=== PATIENT | female | born 1985 | race Caucasian/White ===

== ENCOUNTER 2023-03-21 18:02 | Emergency (ER) | payer MEDICARE, MEDICAID, SELFPAY ==
--- NOTE | ~2023-03-21 | XR_ITS ---
EXAMINATION: XR forearm RT 2V, XR shoulder RT min 2V, XR elbow RT min 3V, XR hand wrist RT 03/21/2023 7:05 PM CLINICAL HISTORY: Fall, fracture? COMPARISON: None FINDINGS: RIGHT SHOULDER: No evidence of acute fracture or malalignment. Glenohumeral joint space is well-preserved. Acromioclavicular joint is unremarkable. Coracoclavicular distance is normal. Soft tissues are unremarkable. RIGHT ELBOW: No evidence of acute fracture or malalignment. Joint spaces are well preserved. Radiocapitellar alignment is normal. No joint effusion. Soft tissues are unremarkable. RIGHT FOREARM/HAND: Acute, comminuted distal radial fracture with mildly displaced dorsal fragments (Lam-type fracture). No evidence of dislocation. Mild widening of the scapholunate interval, measuring 4 mm. Normal bone mineralization. Diffuse wrist soft tissue swelling. XR/XR hand wrist RT IMPRESSION: 1. Acute, comminuted distal radial fracture with mildly displaced dorsal fragments (Lam-type fracture). 2. Mild widening of the scapholunate interval, suspicious for scapholunate ligamentous injury.
--- NOTE | ~2023-03-21 | XR_ITS ---
EXAMINATION: XR forearm RT 2V, XR shoulder RT min 2V, XR elbow RT min 3V, XR hand wrist RT 03/21/2023 7:05 PM CLINICAL HISTORY: Fall, fracture? COMPARISON: None FINDINGS: RIGHT SHOULDER: No evidence of acute fracture or malalignment. Glenohumeral joint space is well-preserved. Acromioclavicular joint is unremarkable. Coracoclavicular distance is normal. Soft tissues are unremarkable. RIGHT ELBOW: No evidence of acute fracture or malalignment. Joint spaces are well preserved. Radiocapitellar alignment is normal. No joint effusion. Soft tissues are unremarkable. RIGHT FOREARM/HAND: Acute, comminuted distal radial fracture with mildly displaced dorsal fragments (Lam-type fracture). No evidence of dislocation. Mild widening of the scapholunate interval, measuring 4 mm. Normal bone mineralization. Diffuse wrist soft tissue swelling. XR/XR shoulder RT min 2V IMPRESSION: 1. Acute, comminuted distal radial fracture with mildly displaced dorsal fragments (Lam-type fracture). 2. Mild widening of the scapholunate interval, suspicious for scapholunate ligamentous injury.
--- NOTE | ~2023-03-21 | XR_ITS ---
EXAMINATION: XR forearm RT 2V, XR shoulder RT min 2V, XR elbow RT min 3V, XR hand wrist RT 03/21/2023 7:05 PM CLINICAL HISTORY: Fall, fracture? COMPARISON: None FINDINGS: RIGHT SHOULDER: No evidence of acute fracture or malalignment. Glenohumeral joint space is well-preserved. Acromioclavicular joint is unremarkable. Coracoclavicular distance is normal. Soft tissues are unremarkable. RIGHT ELBOW: No evidence of acute fracture or malalignment. Joint spaces are well preserved. Radiocapitellar alignment is normal. No joint effusion. Soft tissues are unremarkable. RIGHT FOREARM/HAND: Acute, comminuted distal radial fracture with mildly displaced dorsal fragments (Lam-type fracture). No evidence of dislocation. Mild widening of the scapholunate interval, measuring 4 mm. Normal bone mineralization. Diffuse wrist soft tissue swelling. XR/XR elbow RT min 3V IMPRESSION: 1. Acute, comminuted distal radial fracture with mildly displaced dorsal fragments (Lam-type fracture). 2. Mild widening of the scapholunate interval, suspicious for scapholunate ligamentous injury.
--- NOTE | ~2023-03-21 | XR_ITS ---
EXAMINATION: XR forearm RT 2V, XR shoulder RT min 2V, XR elbow RT min 3V, XR hand wrist RT 03/21/2023 7:05 PM CLINICAL HISTORY: Fall, fracture? COMPARISON: None FINDINGS: RIGHT SHOULDER: No evidence of acute fracture or malalignment. Glenohumeral joint space is well-preserved. Acromioclavicular joint is unremarkable. Coracoclavicular distance is normal. Soft tissues are unremarkable. RIGHT ELBOW: No evidence of acute fracture or malalignment. Joint spaces are well preserved. Radiocapitellar alignment is normal. No joint effusion. Soft tissues are unremarkable. RIGHT FOREARM/HAND: Acute, comminuted distal radial fracture with mildly displaced dorsal fragments (Lam-type fracture). No evidence of dislocation. Mild widening of the scapholunate interval, measuring 4 mm. Normal bone mineralization. Diffuse wrist soft tissue swelling. XR/XR forearm RT 2V IMPRESSION: 1. Acute, comminuted distal radial fracture with mildly displaced dorsal fragments (Lam-type fracture). 2. Mild widening of the scapholunate interval, suspicious for scapholunate ligamentous injury.
[2023-03-21 18:19] VITALS: BP 140/90; PULSE 77; RESP 16; TEMP 36.8; O2SAT 98; BMI 22.9
--- NOTE | 2023-03-21 18:23 | ED.GENADULT ---
HPI - General Adult General Chief complaint: Extremity Injury, Upper Stated complaint: RT arm injury 03/21/23 around 1330 Time Seen by Provider: 03/21/23 19:39 Source: patient Mode of arrival: ambulatory Limitations: no limitations History of Present Illness HPI narrative: 37-year-old female with history of cervical cancer presents to ED for right forearm pain after falling and putting her hands backwards to break her fall. Patient denies hitting head, loss of consciousness, or body in the ground. Patient states putting the hand now backwards tubercle fall and hearing a snap in her wrist. Related Data Previous Rx's Medication Instructions Recorded naproxen 500 mg tablet 500 mg PO BID PRN pain 7 days #14 03/21/23 tabs oxycodone 5 mg tablet 5 mg PO TID PRN pain 3 days #9 tabs 03/21/23 Allergies Allergy/AdvReac Type Severity Reaction Status Date / Time No Known Allergies Allergy Verified 03/21/23 18:18 Review of Systems Review of Systems: wrist pain Yes all other systems are reviewed and are negative [facility] Social History Social History Advance Directives: No Advance Directives Information Provided: Yes Physical Exam ED Vital Signs: Vital Signs - 24 hr 03/21/23 18:19 03/21/23 20:59 Temperature 98.2 F Pulse Rate 77 71 Respiratory Rate 16 18 Blood Pressure 140/90 H 113/73 Pulse Oximetry 98 98 Oxygen Delivery Method Room Air Room Air BMI result Body Mass Index 22.9 Const General: cooperative, healthy appearing, comfortable, no acute distress, well developed, alert, awake and Physically active Orientation/consciousness: oriented to person, oriented to place, oriented to time and patient oriented x3 HENMT Head: Yes normal to inspection, Yes No palpable skull fracture present, Yes normocephalic, Yes atraumatic, No abrasion, No Acrocyanosis present, No Macias's sign, No contusion, No cranial bruits, No hematoma, No laceration, No occipital foramen tenderness, No palpable skull fracture, No raccoon eyes, No scalp lesion, No scalp tenderness, No Temporal artery tenderness present and No periorbital ecchymosis Eyes General: appearance normal, both eyes and all related structures Neck Neck: Yes normal visual inspection, Yes full ROM, Yes no lymphadenopathy, Yes no meningeal signs, Yes trachea midline, Yes supple, No anterior neck swelling and No tender Chest Chest palpation & inspection: normal inspection of the chest and normal palpation of entire chest wall Resp Effort & Inspection: normal respiratory effort and able to speak in complete sentences Cardio Jugular venous distension: no JVD Heart sounds: S1 normal heart sound present and S2 normal heart sound present GI Inspection: Yes normal to inspection Palpation (GI): Soft to palpation, not firm, nontender, no guarding and not rigid General: No CVA tenderness and Yes no CVA tenderness Back/Spine/Pelvis Back: no CVA tenderness, No CVA tenderness and No back tenderness Skin General skin exam: no rashes or lesions noted, elasticity normal and turgor normal Neuro General: oriented to person, oriented to place, oriented to time, patient oriented x3, gait normal, tone normal, moves all extremities, Normal light touch and pain sensation, no meningeal signs, no focal motor deficits, CN's II-XI intact bilaterally and normal sensation to monofilament Extrem General: Yes normal to inspection, Yes full ROM and Yes capillary refill normal Elbow/forearm/wrist images: 1. positive for tenderness on palpation. Negative for crepitus, ecchymosis, redness, hotness, coldness, or open wounds. Positive for slight wrist swelling. Neurovascular exam intact. Motor exam limited due to wrist pain. Psych Appearance: grossly normal, well kempt and not disheveled Course Course Course Narrative: RME: 37 yold female presents to the ED for right arm pain after falling backwards and putting her hand behind her. patient put her hands out behind her to break fall. Medications Administered Discontinued Medications Generic Name Dose Route Start Last Admin Trade Name Lala PRN Reason Stop Dose Admin Ketorolac Tromethamine 30 mg 03/21/23 19:53 03/21/23 20:12 Ketorolac Tromethamine 30 Mg/Ml Vial IM 03/21/23 19:54 30 mg ONCE ONE Administration Oxycodone HCl 5 mg 03/21/23 19:53 03/21/23 20:12 Oxycodone Hcl Immed Release 5 Mg Tablet PO 03/21/23 19:54 5 mg ONCE ONE Administration Medical Decision Making Medical Decision Making [facility] Narrative: 37-year-old female history of cervical cancer presents to ED for right arm pain after using to break her fall. Patient denies any other trauma. X-ray positive for communited radial fracture. No need for reduction. patient placed in volar splint. Vascular neuro exam intact after splint. Explained worrisome sings and informed to return to the ED if she has them. Differential Diagnosis Differential Diagnoses: The differential diagnosis associated with the presentation includes ( volar splint) Admission/Observation Consideration of admission/observation: Escalation of care including admission/observation considered Independent Interpretation I performed an independent interpretation of an: Plain X-Ray Radiology Impression Discussion of test interpretation with radiology: I have reviewed the radiologist's reading. Independent Historian Clinical information obtained from an independent historian. History obtained from or confirmed by: Other (patient) External Record Review External record reviewed: Other (prior visits) Prescription Management I considered prescription management with: Pain Medication Discharge Plan Discharge Clinical Impression: Fracture of wrist Patient Disposition: Home, Self-Care Instructions: Wrist Fracture in Adults (ED) Additional Instructions: came back positive for wrist fracture. You were placed in a splint. Recommend follow-up with orthopedic surgeon. Return to the ED immediately for any bluish black discoloration of fingers, numbness/ tingling, coldness, hotness, redness, or any other concerning symptoms. Prescriptions: New naproxen 500 mg tablet 500 mg PO BID PRN (Reason: pain) 7 Days Qty: 14 0RF oxycodone 5 mg tablet 5 mg PO TID PRN (Reason: pain) 3 Days Qty: 9 0RF Rx Instructions: Partial Fill upon patient request. Referrals: [facility] [place] Group] ( Right wrist fracture) Stand Alone Forms: Work/School Release Interventions: ED Discharge Assessment Last Done: 03/21/23 21:34 Discharge Date/Time: 03/21/23 21:35 Print Language: Maori
[2023-03-21] MEDS: oxyCODONE HCl Immed Release 5 MG TABLET PO (20:12)
[2023-03-21] MEDS: Ketorolac Tromethamine 30 MG/ML VIAL IM (20:12)
[2023-03-21 20:59] VITALS: BP 113/73; PULSE 71; RESP 18; O2SAT 98
== END 2023-03-21 21:35 | disposition home or self-care (01) ==
PROVIDERS: Emergency Provider Emergency Medicine
DX: S62.101A Fracture of unspecified carpal bone, right wrist, initial encounter for closed fracture (principal); M79.601 Pain in right arm; M25.531 Pain in right wrist; W01.10XA Fall on same level from slipping, tripping and stumbling with subsequent striking against unspecified object, initial encounter; Y93.9 Activity, unspecified; Y92.9 Unspecified place or not applicable; Y99.8 Other external cause status
CPT/HCPCS: 29125; 73030; 73080; 73090; 73110; 73130; 96372; 99283; 99284; J1885

== ENCOUNTER 2023-03-30 09:29 | Outpatient (REF) | payer MEDICARE, MEDICAID, SELFPAY ==
--- NOTE | ~2023-03-30 | XR_ITS ---
EXAMINATION: XR WRIST, RIGHT CLINICAL INFORMATION: Pain in right wrist. COMPARISON: March 21, 2023 TECHNIQUE: 4 views of the right wrist. FINDINGS: Redemonstrated is a comminuted distal radial fracture with mild displaced dorsal fragments. There is evidence of mild interval callus formation. Previously identified 4 mm widening of the scapholunate interval is not as well demonstrated, possibly due to differences in positioning. Small cystic lucency along the base of the scaphoid, articular surface. XR/XR wrist RT min 3V IMPRESSION: Redemonstration of a comminuted distal radial fracture with mild interval callus formation.
== END 2023-03-30 09:30 | disposition home or self-care (01) ==
LOC: HO.HOSX 09:29
PROVIDERS: Visit Provider Orthopaedic Surgery
DX: S52.501A Unspecified fracture of the lower end of right radius, initial encounter for closed fracture (principal)
CPT/HCPCS: 25600; 73110; 99202

== ENCOUNTER 2023-03-30 14:29 | Outpatient (AMB) | payer MEDICARE, MEDICAID, SELFPAY ==
[2023-03-30 15:05] VITALS: BMI 22.9
--- NOTE | 2023-03-30 15:05 | A.OFFVIS_ITS ---
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 States she was falling and put her hands backwards to break her fall injuring her wrist. Patient had xrays and was splinted in ED. Currently states she has ongoing pain and throbbing. State she has limited ROM, shooting pain to her elbow, bruising and swelling. Xrays updated in office. 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 She was seen in the ED on the same day and placed in a volar wrist splint. She complains of a throbbing pain in her wrist, which radiates up into her elbow. She also complains of bruising and swelling about her wrist. She was tearful today in clinic. She is out of work on disability due to cervical cancer. She says this is still present but denies any current chemotherapy treatment. She says she used to smoke medical marijuana for her cancer, now only smokes it at night to help her sleep. She denies any other drug use. She takes Seroquil. [facility] Medical History (Updated 03/30/23 @ 15:41 by Frankie Simons) Hx of cervical cancer Social History (Updated 03/30/23 @ 15:16 by Jacki Aguero [facility]) Patient Tobacco Use Status: Never used Tobacco Current occupational status: disabled Current occupation: rt hand Review of Systems Const All systems reviewed & are unremarkable except as noted in HPI and below Physical Exam Vital Signs: BMI result Body Mass Index 22.9 Const General: cooperative, healthy appearing and no acute distress Orientation/consciousness: patient oriented x3 HEENT Head: Yes normocephalic and Yes atraumatic Eyes EOM: EOMs intact bilaterally Resp Effort & Inspection: normal respiratory effort and able to speak in complete sentences Cardio Jugular venous distension: no JVD Skin General skin exam: turgor normal Rashes: no rashes Neuro General: patient oriented x3 Extrem Other: Evaluation of Right Upper Extremity: The patient is alert, oriented, and was mildly tearful today in clinic Neuro: Median, Ulnar, Radial nerves motor and sensory intact and sensation is normal to the tips of all digits Vascular: Cap refill brisk ROM: She had her fingers splinted in extension, and could weakly bring her fingers ~5cm from her palm, with some distress With encouragement she could move her elbow, and had full active ROM without pain Skin: No lacerations or abrasions. General: Some wrist swelling & ecchymosis Tender over the fracture site Visible apex volar deformity Radiographs: 3 views of the right wrist from 03/21/23 were reviewed by me today in clinic. They show a right distal radius fracture, with dorsal comminution & ~8 degrees apex volar angulation seen on the lateral view. Psych Appearance: grossly normal Affect: normal affect Attitude: cooperative Assessment & Plan Assessment & Plan (1) Fracture of right distal radius: Code(s): S52.501A - Unspecified fracture of the lower end of right radius, initial encounter for closed fracture Plan Assessment & Plan: 1. Right distal radius fracture, dorsal comminution S/P fall, DOI: 03/21/23 I educated her about this condition I discussed operative and non-operative treatment options The patient would like to proceed with surgery She was placed in a new volar fiberglass splint to be worn until her surgery. I encouraged rest and elevation. I discussed activity modification, she is to work on gentle finger ROM exercises at home The risks and benefits of operative treatment were discussed with the patient and the patient wishes to proceed with surgery. These risks include, but are not limited to risk of damage to blood vessels, nerves, tendons, infection, recurrence, incomplete relief of preoperative symptoms, persistent pain, possible need for further surgery and the risks associated with regional blocks and anesthesia. The plan is to take the patient to the operating room sometime on 04/01/23 for the following procedures: 1. Right distal radius ORIF, under general All of the preoperative paperwork including the consent was reviewed today. All the patient's questions were answered. The patient understands that they will be contacted by our junior financial analyst soon to schedule this procedure She denies Diabetes, blood thinners, asthma, heart, lung, kidney issues She has cervical cancer. I counselled her on the effects of smoking Marijuana on bone healing, and recommend she try using gummies to help her sleep at night instead of smoking Marijuana She is on Seroquel Scribed for Jojo Rosario MD by Frankie Simons, health care / medical job titles, on 03/30/23 at 3:35 PM, EST. Orders: Orders XR wrist RT min 3V Today M25.531 - Pain in right wrist Coding Level of Care Code New Pt Level 4 (52740) Diagnoses Fracture of right distal radius S52.501A
== END 2023-03-30 16:18 | disposition home or self-care (01) ==
PROVIDERS: Visit Provider Orthopaedic Surgery
DX: S52.501A Unspecified fracture of the lower end of right radius, initial encounter for closed fracture (principal); W19.XXXA Unspecified fall, initial encounter
CPT/HCPCS: 25600; 99204

== ENCOUNTER 2023-04-14 12:05 | Outpatient (REF) | payer MEDICARE, MEDICAID, SELFPAY ==
--- NOTE | ~2023-04-14 | XR_ITS ---
EXAMINATION: XR WRIST, RIGHT CLINICAL INFORMATION: Pain in right wrist COMPARISON: Right wrist 03/30/2023 TECHNIQUE: PA, lateral, and oblique views of the right wrist. FINDINGS: Again demonstrated is a comminuted distal radial fracture with mild displaced dorsal fragments. There is slight blurring of the fracture lines. Previously noted 4 mm widening of the scapholunate interval is not as well-demonstrated on the current study, likely due to differences in positioning. XR/XR wrist RT min 3V IMPRESSION: Redemonstration of a comminuted distal radial fracture with mild interval healing.
== END 2023-04-14 12:06 | disposition home or self-care (01) ==
LOC: HO.HOSX 12:05
PROVIDERS: Visit Provider Orthopaedic Surgery
DX: S52.501A Unspecified fracture of the lower end of right radius, initial encounter for closed fracture (principal); R20.0 Anesthesia of skin; R20.2 Paresthesia of skin
CPT/HCPCS: 73110; 99212

== ENCOUNTER 2023-04-14 12:24 | Outpatient (AMB) | payer MEDICARE, MEDICAID, SELFPAY ==
--- NOTE | 2023-04-14 12:32 | A.OFFVIS_ITS ---
Intake Vital Signs 04/14/23 12:34 Height 5 ft 2 in Weight 125 lb BMI 22.9 Intake Visit Reasons: ov-fracture of right distal radius, DOI 03/21/23 Intake Note: Nadia 37 yr old female presents today for her follow up visit for her right distal radius DOI from 03/21/23. States she had an emergency with her daughter in college and was not kto have surgery done. Allergies No Known Allergies Allergy (Verified 04/14/23 12:33) HPI ov-fracture of right distal radius, DOI 03/21/23 HPI Details Nadia is a 37 year old right hand dominant woman who presents for a right wrist fracture S/P fall, DOI: 03/21/23. She was scheduled for a distal radius ORIF on 04/01/23, but she no-showed her surgery, which she says was due to a family emergency with her daughter She complains of a throbbing pain in her wrist, which radiates up into her elbow. She also complains of bruising and swelling about her wrist and pain when trying to move her wrist or fingers. She also reports intermittent numbness & tingling in her fingers since her last appointment. She says this is intermittent and occurs with certain positions or activities. She says she first noticed this when holding a video game controller to play with her nephew. She was tearful today in clinic. She is out of work on disability due to cervical cancer. She says this is still present but denies any current chemotherapy treatment. She says she used to smoke medical marijuana for her cancer, now only smokes it at night to help her sleep. She denies any other drug use. She takes Seroquil. [facility] Medical History (Updated 04/14/23 @ 13:33 by Frankie Simons) Hx of cervical cancer Social History Patient Tobacco Use Status: Never used Tobacco Current occupational status: disabled Current occupation: rt hand Review of Systems Const All systems reviewed & are unremarkable except as noted in HPI and below Physical Exam Vital Signs: BMI result Body Mass Index 22.9 Const General: no acute distress and alert Orientation/consciousness: patient oriented x3 Neuro General: patient oriented x3 Extrem Other: Evaluation of Right Upper Extremity: The patient is alert, oriented, and was mildly tearful today in clinic Neuro: Median, Ulnar, Radial nerves motor and sensory intact and sensation is normal to the tips of all digits today in clinic Vascular: Cap refill brisk ROM: With encouragement she was able to make a fist and bring all her fingers into full extension, with good active thumb ROM With encouragement she could move her elbow, and had full active elbow ROM without pain No tenderness about the elbow or with proximal forearm squeeze. No tenderness along the length of the ulna. We worked on ROM exercises today in clinic She was able to demonstrate about 40 degrees of supination and about 40 degrees of pronation with encouragement. General: Some wrist swelling & ecchymosis Tender over the fracture site Visible apex volar wrist deformity No lacerations or evidence of open injury She could with encouragement make a fist and extend all of her digits. She can oppose her thumb to all digits with encouragement. Radiographs: 3 views of the right wrist were taken and viewed by me today in clinic. They show a right distal radius fracture, with dorsal comminution & now with at least 30 degrees apex volar angulation seen on the lateral view. Psych Appearance: grossly normal Affect: normal affect Attitude: cooperative Assessment & Plan Assessment & Plan (1) Fracture of right distal radius: Code(s): S52.501A - Unspecified fracture of the lower end of right radius, initial encounter for closed fracture (2) Numbness and tingling in right hand: Code(s): R20.0 - Anesthesia of skin; R20.2 - Paresthesia of skin Plan Assessment & Plan: 1. Right distal radius fracture malunion, dorsal comminution S/P fall, DOI: 03/21/23 Now with a malunion and a 30+ degree apex volar deformity I educated her about this condition I discussed operative and non-operative treatment options She no-showed her scheduled ORIF on 04/01/23 due to a family emergency and has been wearing her volar fiberglass splint since her last appointment. I recommend surgery, and she is in agreement. She is also experiencing intermittent numbness since her accident, and I recommend a carpal tunnel release she is to work on gentle finger ROM exercises at home The risks and benefits of operative treatment were discussed with the patient and the patient wishes to proceed with surgery. These risks include, but are not limited to risk of damage to blood vessels, nerves, tendons, infection, recurrence, incomplete relief of preoperative symptoms, persistent pain, possible need for further surgery and the risks associated with regional blocks and anesthesia. The plan is to take the patient to the operating room sometime on 04/19/23 for the following procedures: 1. Right distal radius corrective osteotomy, under general 2. Right carpal tunnel release, under general All of the preoperative paperwork including the consent was reviewed today. All the patient's questions were answered. The patient understands that they will be contacted by our rock crusher soon to schedule this procedure She denies Diabetes, blood thinners, asthma, heart, lung, kidney issues She has cervical cancer. I counselled her on the effects of smoking Marijuana on bone healing, and recommend she try using gummies to help her sleep at night instead of smoking Marijuana She is on Seroquel Please note that greater than 50 minutes was spent with this patient going over the history, evaluating the patient and radiographs, formulating possible treatment options, discussing them with the patient, and documenting the visit. Scribed for Jojo Rosario MD by Frankie Simons, electromedical equipment repairer, on 04/14/23 at 12:45 PM, EST. Orders: Orders XR wrist RT min 3V Today M25.531 - Pain in right wrist Coding Level of Care Code Est Pt Level 4 (61718) Diagnoses Fracture of right distal radius S52.501A Numbness and tingling in right hand R20.0; R20.2
[2023-04-14 12:34] VITALS: BMI 22.9
== END 2023-04-14 13:37 | disposition home or self-care (01) ==
PROVIDERS: Visit Provider Orthopaedic Surgery
DX: S52.501A Unspecified fracture of the lower end of right radius, initial encounter for closed fracture (principal); G56.01 Carpal tunnel syndrome, right upper limb; R20.0 Anesthesia of skin; R20.2 Paresthesia of skin
CPT/HCPCS: 99024; 99214

== ENCOUNTER 2023-05-04 14:44 | Outpatient (AMB) | payer MEDICARE, MEDICAID, SELFPAY ==
--- NOTE | 2023-05-04 15:44 | MHC.OFFVIS ---
Intake Intake Visit Reasons: O/V Rt Distal Rad Osteotomy, CTR 03/21/23 Intake Note: Nadia 37 yr old female presents today for her follow up visit for her right distal radius DOI from 03/21/23. Patient was supposed to have surgery on 04/19/23 however surgery was cancelled. States she is still having pain. Allergies No Known Allergies Allergy (Verified 05/04/23 15:45) Medication List - Last Reconciled 05/04/23 by Shelli Lagunas RN acetaminophen (Tylenol) 325 mg PO QID PRN escitalopram oxalate mg PO naproxen 500 mg PO BID PRN 7 days quetiapine mg PO HPI O/V Rt Distal Rad Osteotomy, CTR 03/21/23 HPI Details Nadia is a 37 year old right hand dominant woman who presents for a right wrist fracture S/P fall, DOI: 03/21/23. She was scheduled for a distal radius ORIF on 04/01/23, and a corrective osteotomy & carpal tunnel release on 04/19/23. She no-showed both surgery dates. She is apologetic today for missing her last surgery. She is somewhat tearful again today when talking about her right wrist deformity, and the pain that she sometimes gets in her right wrist and forearm. She also complains of problems with numbness and tingling in her fingers that is worse with activities such as playing video games with her nephew, and at night. She is seen today wearing an Ronan wrap around her wrist and forearm and has a long Velcro wrist splint that she says she just got yesterday. She says that her family members and friends see her deformity and tell her to put it in a brace to support her injured wrist. She is out of work on disability due to cervical cancer. She says this is still present but denies any current chemotherapy treatment. She says she used to smoke medical marijuana for her cancer, now only smokes it at night to help her sleep. She denies any other drug use. She takes Seroquil. [facility] Medical History (Updated 05/04/23 @ 16:10 by Frankie Simons) Hx of cervical cancer Social History Patient Tobacco Use Status: Never used Tobacco Current occupational status: disabled Current occupation: rt hand Physical Exam Const General: no acute distress and alert Orientation/consciousness: patient oriented x3 Neuro General: patient oriented x3 Extrem Other: Evaluation of Right Upper Extremity: The patient is alert, oriented, and was mildly tearful again today in clinic Neuro: Median, Ulnar, Radial nerves motor and sensory intact . No thenar or intrinsic wasting. Good finger cross. Vascular: Cap refill brisk ROM: She could make her fist and extend all her digits She can oppose her thumb to all digits Fracture site non-tender Visible apex volar wrist deformity She was able to demonstrate pronation and supination with encouragement and without significant discomfort. Psych Appearance: grossly normal Affect: normal affect Attitude: cooperative Assessment & Plan Assessment & Plan (1) Fracture of distal end of right radius with malunion: Code(s): S52.501P - Unspecified fracture of the lower end of right radius, subsequent encounter for closed fracture with malunion (2) Carpal tunnel syndrome of right wrist: Code(s): G56.01 - Carpal tunnel syndrome, right upper limb Plan Assessment & Plan: 1. Right distal radius fracture malunion S/P fall, DOI: 03/21/23 No show for scheduled ORIF on 04/01/2023 Now fracture well healed with a malunion and a 30+ degree apex volar deformity 2. Right carpal tunnel syndrome, based on history and PE Symptoms intermittent, but daily, worse with activity This began following her distal radius fracture, slightly improved, but still present I educated her about these conditions I discussed operative and non-operative treatment options She no-showed her scheduled ORIF on 04/01/23 as well as her corrective osteotomy & carpal tunnel release on 04/19/23. I believe she would benefit from a corrective osteotomy in the future, however I need more confidence that she is going to be able to come in for surgery, come in for post-op appointments, and follow directions from OT hand therapy before considering a corrective osteotomy.. I explained that I want her to have the best chance of having a good outcome. This will also give her some time to continue working on smoking cessation, in her case of marijuana. She says she has not smoked marijuana for about 2 or 3 weeks now. She denies smoking cigarettes at this time or vaping She will discontinue her wrist splint at this time, and wear it only when out of the house. I did explain that I do not think that she needs to wear a splint, as her fracture is healed. I do understand that she has some anxiety and feels more comfortable with the splint and we have agreed that she can wear it for short periods when out of the house. I ordered OT hand therapy to work on desensitization, strengthening, and normalizing hand function. It is my hope that this will also establish her with OT hand therapy so that should she need it after her corrective osteotomy she will be comfortable and more likely to attend. I am also recommending that we treat her right carpal tunnel syndrome. The risks and benefits of operative treatment were discussed with the patient and the patient wishes to proceed with surgery. These risks include, but are not limited to risk of damage to blood vessels, nerves, tendons, infection, recurrence, incomplete relief of preoperative symptoms, persistent pain, possible need for further surgery and the risks associated with regional blocks and anesthesia. Because of her anxiety and mental health issues, I am recommending that this is done under general anesthesia rather than under local anesthesia. The plan is to take the patient to the operating room sometime in the next few weeks for the following procedures: 1. Right carpal tunnel release, under general All of the preoperative paperwork including the consent was reviewed today. All the patient's questions were answered. The patient understands that they will be contacted by our assistant professor of surgery soon to schedule this procedure She denies Diabetes, blood thinners, asthma, heart, lung, kidney issues She has cervical cancer. She is on Seroquel Please note that greater than 30 minutes was spent with this patient gathering the history, evaluating the patient and her previous documentation, formulating a treatment plan, discussing this with the patient and educating her about the above issues, and documenting the visit Scribed for Jojo Rosario MD by Frankie Simons, medical records specialist, on 05/04/23 at 3:45 PM, EST. Orders: Orders OT Evaluation and Treatment Today G56.01 - Carpal tunnel syndrome, right upper limb, S52.501P - Unspecified fracture of the lower end of right radius, subsequent encounter for closed fracture with malunion Coding Level of Care Code Est Pt Level 4 (74166) Diagnoses Fracture of distal end of right radius with malunion S52.501P Carpal tunnel syndrome of right wrist G56.01
== END 2023-05-04 16:15 | disposition home or self-care (01) ==
LOC: HO.HOS 14:44
PROVIDERS: Visit Provider Orthopaedic Surgery
DX: G56.01 Carpal tunnel syndrome, right upper limb (principal); S52.501P Unspecified fracture of the lower end of right radius, subsequent encounter for closed fracture with malunion
CPT/HCPCS: 99214

== ENCOUNTER → 2023-05-04 14:44 | Outpatient (BNVA) | payer MEDICARE, MEDICAID, SELFPAY | PROVIDERS: Visit Provider Orthopaedic Surgery | DX: S52.501P Unspecified fracture of the lower end of right radius, subsequent encounter for closed fracture with malunion (principal); G56.01 Carpal tunnel syndrome, right upper limb; X58.XXXD Exposure to other specified factors, subsequent encounter | CPT/HCPCS: 99212 ==

== ENCOUNTER 2023-05-31 13:00 | Outpatient (RCR) | payer MEDICARE, MEDICAID, SELFPAY ==
--- NOTE | 2023-05-11 15:49 | MHC.OT.EP ---
[address] [phone] Occupational Therapy Plan of Care Patient Name: Nadia William Date of Evaluation: 05/11/23 Diagnosis: Right DRF, Right CTS Pain Location: Minimal pain at rest, increases w/ active use (lifting clothes), playing xbox Pain Score: 8 Pain Scale Used: Numeric (0 - 10) Aggravating Factors: Movements, light use Alleviating Factors: Ibuproxen, Naproxen, Seroquil (for sleep - on prior to injury), Marijuana Assessment: 37 yo female s/p fall while carrying groceries 03/21/23. She was scheduled for two surgical procedures including distal radius repair and carpal tunnel release w/ Dr Rosario, but no-showed for both and was very apologetic and tearful on her ortho follow-up visit. She has been referred to OT for conservative treatment of CTS and normalization of light right hand use. On assessment today, pt has somewhat distant and guarded demeanor, difficulty attending to assessment and minimal eye contact. She is tangential w/ speech and needs redirection back to task, very vague with history. She is very guarded with right hand and arm, holding in position of comfort, and has visible edema and malunion at right wrist. [place] Angélica shows impaired light touch throughout right hand, but no atrophy noted and median nerve intact w/ nerve testing. She reports numbness and tingling occurs at nighttime and with prolonged use of right hand (playing video games). She will benefit from cont'd outpatient hand therapy for edema management, conservative pain management and progression of light use w/ mindfulness of joint protection and activity modification for healing distal radius fractire and acute carpal tunnel syndrome. Frequency and Duration: The patient will be seen 2x/wk for 4 weeks Short Term Goals: Pt to report ease with use of right hand for light bimanual self care tasks (oral care, make-up) Pt to demo good follow through w/ HEP for tendon glides and general UE AROM Pt to report good follow through w/ edema management techniques including cold modalities and edema massage Pilot Boat Deckhand Goals: Pt to demo light use of right hand/wrist w/ IADL tasks (folding laundry, putting away dishes, sweeping) Pt to report ease of nighttime CTS symptoms with sleep modifications and positional awareness Pt to develop 2 or more coping strategies for anxiety including hobbies, talking to friends/family, walking, etc Treatment Plan: Therapeutic Exercise Therapeutic Activity Home Exercise Program Patient Education Desensitization/Sensory Re-ed Edema Control ADL Training Fluidotherapy Cold Packs Soft Tissue Mobilization Kinesiotaping Low temp fluido Electronically Signed By: Sparkle Stephens OTR/L CHT Please Sign and return to therapist. Thank you once again for your referral.
--- NOTE | 2023-06-03 13:54 | MHC.OT.DC ---
[address] [phone] F: [phone] Occupational Therapy Discharge Note Patient Name: Nadia William Provider: Dr Jojo Rosario Diagnosis: Right DRF, Right CTS Date of Evaluation: 05/11/23 Date of Discharge: 06/03/23 Treatments to Date: 4 Cancellations to Date: 1 No Shows to Date: 3 Discharge Status: Visit Non-compliance Discharge Summary: Nadia was referred to OT w/ right DRF malunion and CTS. We have seen her for four visits over the past several weeks, but she has no-showed for three. She continues to report increased numbness, but not necessarily worse w/ new exercises. She is very vague with activities and daily routine, tangentile speech at times and difficulty w/ eye contact, although following all cues and engaging with therapeutic activities while in office. She has tried wearing orthosis for nighttime only to prevent CTS symptoms, but reports increased pain w/ wear. She is okay with light use of right hand (plays x-box) but otherwise is very guarded with daily activities. We will be unable to continue therapy services at this time due to no-show policy, but I am hopeful she will continue home exercises and light use of hand. Electronically Signed By: Sparkle Stephens OTR/Mark CHT Please Sign and return to therapist, thank you for your referral.
== END 2023-06-03 13:54 | disposition home or self-care (01) ==
LOC: HO.OT 13:00
PROVIDERS: Visit Provider Orthopaedic Surgery
DX: S52.501P Unspecified fracture of the lower end of right radius, subsequent encounter for closed fracture with malunion (principal)
CPT/HCPCS: 97110; 97140; 97166

== ENCOUNTER 2025-01-12 21:15 | Emergency (ER) | payer MEDICARE, MEDICAID, SELFPAY ==
[2025-01-12 21:17] VITALS: BP 116/77; PULSE 40; O2SAT 96
--- NOTE | 2025-01-12 22:06 | ECG_ITS ---
Test Reason : SYNCOPE Blood Pressure : */* mmHG Vent. Rate : 53 BPM Atrial Rate : 53 BPM P-R Int : 140 ms QRS Dur : 80 ms QT Int : 438 ms P-R-T Axes : 74 56 41 degrees QTcB Int : 410 ms Sinus bradycardia with sinus arrhythmia Otherwise normal ECG No previous ECGs available Referred By: Sharri Luna Electronically Signed By: DEVORA LAMB
[2025-01-12 22:08] VITALS: BP 89/60; PULSE 49; RESP 17; TEMP 36.6; O2SAT 95; BMI 21.9
--- NOTE | 2025-01-12 22:17 | ED_ITS ---
HPI - General Adult General Chief complaint: Overdose Stated complaint: Found unresponsive in bathroom HPD Time Seen by Provider: 01/12/25 22:07 Source: patient and EMS Mode of arrival: EMS Limitations: no limitations History of Present Illness ED Provider: Dr. Sharri Luna HPI narrative: Patient comes to the emergency room via ambulance. According to EMS, the patient was [place] un[place]. Patient admits that she has been using Klonopin no and also has been smoking marijuana. Patient denies any other substance abuse. Time patient states that she is currently being treated for anxiety and depression. Patient denies SI or HI. Patient denies drinking alcohol. Patient states that she has been very depressed, not eating well. Patient states that she has not slept for at least 3 days, maybe couple of hours each day. Patient states that she went to the bathroom, put her head against the wall and supposedly fell asleep. Patient denies any head injury, denies being on blood thinners. Patient admits that about a month ago, she was still using ?drugs?. Related Data Home Medications ?Medication ?Instructions ?Recorded ?Confirmed acetaminophen 325 mg capsule 325 mg PO QID PRN 4 05/04/23 (Tylenol) escitalopram oxalate 10 mg tablet mg PO 03/30/2305/03 quetiapine 25 mg tablet mg PO 03/30/23 05/04/23 Previous Rx's ?Medication ?Instructions ?Recorded naproxen 500 mg tablet 500 mg PO BID PRN pain 7 day s #14 03/21/23 tabs Allergies Allergy/AdvReac Type Severity Reaction Status Date / Time No Known Allergies Allergy Verified 01/12/25 22:13 Review of Systems 2 Review of Systems: Constitutional : No Weight loss, No Fever, No Chills, No Night Sweats, No Fatigue, No Malaise ENT/Mouth : No Hearing loss, No Ear Pain, No Nasal Congestion, No Sinus Pain, No Hoarseness, No sore throat, No Rhinorrhea, No Swallowing Difficulty Eyes: No Eye Pain, No Swelling, No Redness, No Foreign Body, No Discharge, No Vision Changes Cardiovascular : No Chest Pain, No SOB, No Dyspnea on Exertion, No Orthopnea, No Edema, No Palpitations Respiratory : No Cough, No Sputum, No Wheezing, No Smoke Exposure, No Dyspnea Gastrointestinal : No Nausea, No Vomiting, No Diarrhea, No Constipation, No abdominal Pain, No Hematochezia, No Melena Genitourinary : no irregular bleeding, No Dysuria, No Urinary Frequency, No Hematuria, No Urinary Incontinence, No Urgency, No Flank Pain, No Urinary Flow Changes, No Hesitancy Musculoskeletal : No joint pain, No Myalgias, No Joint Swelling Skin : No Skin Lesions, No rash Neuro : No Weakness, No Numbness, No Paresthesias, complaining of 1 episode of loss of consciousness, No Dizziness, No Headache Psych : complaining of anxiety and depression No SI/HI/AH/VH, No Social Issues, Heme/Lymph: No Bruising, No Bleeding,No Lymphadenopathy Endocrine : No Polyuria, No Polydipsia, No Temperature Intolerance [facility] Past Medical History Medical History Hx of cervical cancer Social History Social History Patient Tobacco Use Status: Never used Tobacco Advance Directives: No Advance Directives Information Provided: No Do you have a plan to hurt others: No Plan Current occupational status: disabled Current occupation: rt hand Physical Exam ED Exam Exam: Appearance: Alert. Oriented X3. Patient's seems to be under the influence of drugs versus alcohol but still able to talk and have a fairly coherent conversation Eyes: Pupils equal, round and reactive to light. ENT: Pharynx normal. Neck: Normal inspection. Neck supple. No lymph nodes noted. No crepitus CVS: Normal heart rate and rhythm. Pulses normal. Normal S1 and S2 Respiratory: No respiratory distress. Breath sounds normal. No Wheezing. No rales Abdomen: Soft and nontender. No rigidity. No distention. Skin: Pale skin color, ecchymosis in the forearms, questionable old track tsai Extremities: No lower extremity edema. No Lacerations. No Rash Neuro: Oriented X 3. No motor deficit. No sensory deficit. Moving all extremities. No slurred speech. CN 2 through 12 grossly intact Psych: calm, cooperative, normal affect Vital Signs: Vital Signs - 24 hr 01/12/25 22:08 01/12/25 22:50 01/13/25 01:16 Temperature 97.9 F Pulse Rate 49 L 53 56 Respiratory Rate 17 16 Blood Pressure 89/60 L 104/62 89/69 L Pulse Oximetry 95 Oxygen Delivery Method Room Air 01/13/25 01:20 01/13/25 01:24 Temperature Pulse Rate 57 69 Respiratory Rate Blood Pressure 111/79 117/84 Pulse Oximetry Oxygen Delivery Method BMI result Body Mass Index 21.9 Course Course Course Narrative: Patient admits that in the past she has been using drugs, patient states it has been less than a month. Patient is currently in therapy for anxiety and depression but has not seen a psychiatrist yet. Patient is adamant that she is not suicidal or homicidal. Patient admits that she has been depressed and not sleeping well and not eating. A care team consult was offered, patient declined, patient states that she is doing well with her current therapist Physician observation started at 22:30 Medications Administered Discontinued Medications Generic Name Dose Route Start Last Admin Trade Name Freq PRN Reason Stop Dose Admin Sodium Chloride 1,000 mls @ 999 mls/hr 01/12/25 22:17 01/13/25 01:35 Ns IVCONT 01/12/25 23:17 Infused .Q1H1M ONE Infusion Medical Decision Making Medical Decision Making [facility] Narrative: My interpretation of EKG: Sinus bradycardia, heart rate 53, no ST segment depression or elevation, no T-wave inversion, QTC 410 My interpretation of labs: No significant abnormality in patient's hematology or chemistry, D-dimer negative, negative troponin, no significant abnormality in LFTs, hCG negative, urinalysis has a large amount of squamous epithelial cells, no bacteria, no nitrite, the urine sample is contaminated. Patient does not have UTI symptoms, antibiotics not indicated this time. Patient stated that she has not use any drugs in at least 3 weeks, however, they Toxicology report is positive for opiates, fentanyl, amphetamines, benzodiazepines, cocaine, marijuana Overall, since that the patient had an accidental overdose When patient presented to ED, seems that patient was under the influence of alcohol versus drugs Patient is adamant that she is not SI or HI Patient declined to be seen by the care team Vitals stable Patient will be provided with home Narcan At this time, 02:30, physician observation ending, patient states that she feels well to go home. Patient's daughter will pick her up Differential Diagnosis Differential Diagnoses: The differential diagnosis associated with the presentation includes (Anxiety, depression, polysubstance abuse, accidental overdose, pulmonary embolism, alcohol abuse/intoxication) Admission/Observation Consideration of admission/observation: Escalation of care including admission/observation considered (Given patient's history and presentation, observation was started) Lab Data MDM Lab Attestation statement: I reviewed the patient's lab results. 01/12/25 23:15 01/12/25 23:15 Labs: Lab Results 01/12/25 01/13/25 Range/Units 23:15 01:32 WBC 9.0 (4.8-10.8) X10*3/uL RBC 4.07 L (4.20-5.50) X10*6/uL Hgb 11.7 L (12.0-16.0) g/dl Hct 35.9 L (37.0-47.0) % MCV 88.2 (80.0-98.0) fL MCH 28.7 (27.0-33.0) pg MCHC 32.6 (31.0-35.0) g/dl RDW 13.3 (11.0-16.0) % Plt Count 337 (160-400) X10*3/uL MPV 10.7 (9.4-12.3) fL Immature Gran % (Auto) 0.2 (0.0-0.4) % Neut % (Auto) 62.5 (45-73) % Lymph % (Auto) 30.3 (20-40) % [place] % (Auto) 4.7 (2-11) % Eos % (Auto) 1.6 (0-4) % Baso % (Auto) 0.7 (0-2) % Lymph # (Auto) 2.7 (1.2-4.9) X10*3/uL [place] # (Auto) 0.4 (0.1-1.2) X10*3/uL Eos # (Auto) 0.1 (0.0-0.4) X10*3/uL Baso # (Auto) 0.1 (0.0-0.2) X10*3/uL Abs Immat Gran (auto) 0.02 (0.00-0.03) X10*3/uL Absolute Neuts (auto) 5.6 (2.0-8.3) x10*3/uL Absolute Nucleated RBC 0.000 (0.0-0.012) X10*3/uL Nucleated RBC % (auto) 0.0 (0.0-0.2) /100WBC D-Dimer High Sensitivty < 150 NG/ML Sodium 139 (135-145) mmol/L Potassium 4.4 (3.3-5.1) mmol/L Chloride 107 (96-108) mmol/L Carbon Dioxide 23 (22-29) mmol/L Anion Gap 13 (12-20) BUN 12 (9-16) mg/dL Creatinine 0.74 (0.5-1.4) mg/dL Estim Creat Clear Calc 82.3 Estimated GFR > 60 Random Glucose 127 H (60-115) mg/dL Calcium 9.3 (8.4-10.2) mg/dL Magnesium 2.1 (1.6-2.6) mg/dL Total Bilirubin 0.4 (0.0-1.0) mg/dL Direct Bilirubin 0.1 (0.0-0.5) mg/dL AST 43 H (5-31) U/L ALT 17 (0-31) U/L Alkaline Phosphatase 76 (39-117) U/L Troponin I High Sens < 2.7 (<3.5-17.0) ng/L Total Protein 8.3 H (6.5-8.0) g/dL Albumin 4.3 (3.5-5.0) g/dL Beta HCG, Quant < 2 mIU/mL Urine Color Yellow Urine Appearance Clear Urine pH 5.5 (5.0-9.0) Ur Specific [place] 1.020 (1.005-1.025) Urine Protein 100 (2+) H (Neg-Trace) mg/dL Urine Glucose (UA) Negative (Negative) mg/dL Urine Ketones Negative (Negative) mg/dL Urine Blood Moderate (2+) H (Negative) Urine Nitrite Negative (Negative) Ur Leukocyte Esterase Small (1+) H (Negative) Urine RBC 11-20 H (0-2) /HPF Urine WBC 11-20 H (0-5) /HPF Ur Squamous Epith Cells 6-10 (0-2) /HPF Urine Bacteria Trace (None Seen) Hyaline Casts 0-2 (0-2) /LPF Urine Opiates Screen POSITIVE H (Not Detect) Ur Buprenorphine Scrn Not Detected (Not Detect) ng/mL Ur Oxycodone Screen Not Detected (Not Detect) ng/mL Urine Methadone Screen Not Detected (Not Detect) ng/mL Urine Fentanyl Screen POSITIVE H (Not Detect) Ur Barbiturates Screen Not Detected (Not Detect) Ur Phencyclidine Scrn Not Detected (Not Detect) Ur Amphetamines Screen POSITIVE H (Not Detect) U Benzodiazepines Scrn POSITIVE H (Not Detect) Urine Cocaine Screen POSITIVE H (Not Detect) U Marijuana (THC) Screen POSITIVE H (Not Detect) Ethyl Alcohol < 10 mg/dL Critical Care Time Critical Care Time Critical Care Time: Yes Total Critical Care Time: 50 Attestation: I have personally provided critical care time. Time includes review of lab data, radiology results, discussion with consultants, and monitoring for potential decompensation. Intervention performed as documented. Discharge Plan Discharge Clinical Impression: Accidental overdose, Depression Patient Disposition: Home, Self-Care Instructions: Adult Overdose (ED), Depression (ED) Additional Instructions: Overdose You were seen in our Emergency Department for an overdose today. You received narcan in order to reverse the effects of overdose. Narcan only lasts about 45 min to 1 hour in the system. You may have been given narcan to take home with you today, please keep it near you if you are going to use again, so others can use it if needed.? The number one risk for fatal overdose is using alone? [employer] is a / hotline where you can be on the phone with someone while you use, and they can call for help if they suspect an overdose: [phone] Things to look out for when you leave include severe vomiting or diarrhea, headaches, muscle cramps, fever, coughing, chest pain, or if you feel so short of breath you cannot walk to the bathroom. Please seek care and return any time for worsening symptoms.? You may have been provided with safer injection?items, please take time to take care of YOU and your health. Use new supplies whenever possible to lessen the chances of infections and other illnesses.? If you need more supplies, please go [facility],? [address] [place] [address] OR you can call or text to coordinate delivery of safer supplies. If you decide you want to stop or cut down on how much you?re using, please call the numbers on the list provided to you or you can come to our outpatient Addiction Treatment office [facility], [place] (M-F 9am-5p) [address], [address] [place], [place]. [phone] Prescriptions: No Action naproxen 500 mg tablet 500 mg PO BID PRN (Reason: pain) 7 Days Qty: 14 0RF acetaminophen [Tylenol] 325 mg capsule 325 mg PO QID PRN quetiapine 25 mg tablet PO escitalopram oxalate 10 mg tablet PO Print Language: Lithuanian
[2025-01-12 22:50] VITALS: BP 104/62; PULSE 53; RESP 16
--- OUTSIDE RECORDS SUMMARY | 2025-01-12 22:55 | XMS_ITS | Clinical Summary ---
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 Not on avinash e 12/15/2024 Are you concerned about learning? Not on file 12/15/2024 No 12/15/2024 No 12/15/2024 Digital Access Answer Date Recorded No 12/15/2024 No 12/15/2024 Reliable internet access at home? Not on file 12/15/2024 Device with a working camera? Not on file Comments Unknown Sex and Gender Information Value Date Recorded Sex Assigned at Not on file Legal Sex Female 5:16 PM EDT Gender Identity Not on file Sexual Orientation Not on file Last Filed Vital Signs Vital Sign Reading Time Taken Comments Blood Pressure 117/64 04/04/2014 3:16 PM EST Pulse 94 04/04/2014 3:16 PM EST Temperature 36.4 C (97.5 F) 04/28/2012 10:45 AM EDT Respiratory Rate 18 04/28/2012 10:45 AM EDT Oxygen Saturation - - Inhaled Oxygen Concentration - - Weight 49.9 kg (110 lb) 04/04/2014 3:16 PM EST Height 157.5 cm (5' 2 ) 04/04/2014 3:16 PM EST Body Mass Index 20.12 04/04/2014 3:16 PM EST Plan of Treatment Not on file Medical Devices Not on file Insurance MEDICARE PART A & B [facility] & B Member Subscriber Plan / Payer (Ef fective 2014-Present) Name:Nadia William Member ID:[id number] Relation to Subscriber:Self Name:Nadia William Subscriber ID:[id number] Payer ID:[id number] Group ID:Not on file Type:Medicare Address: [employer] [address] [place] [address] [place] [address] [place] [address] MEDICARE PART A & B MEDICARE PART A & B MEDICARE PART A & B MEDICARE PART A & B [facility] PART A & B [place] MEDICARE PART A & B MEDICARE PART [facility] & [facility] Care Teams Sales Communications Manager Relationship Specialty Start Date End Date Neo Webster MD [address] [place] [address] 4B_OB/[employer] [place] [address] PCP - General 06/14/14 Additional Source Comments The information contained in this document represents components of the legal health record. It is not the complete legal health record.[facility]
--- OUTSIDE RECORDS SUMMARY | 2025-01-12 22:55 | XMS_ITS | Encounter Summary ---
Author Organization [facility] Address [address] [place] [id number] Phone Care Team Providers Care Typewriter Aligner Name Role Phone Neo Webster MD Primary Care Provider Encounter Details Date Type Department Care Team (Late st Contact Info) Description 12/15/2024 Orders Only [facility] [address] [place] [address] Henry Little MD [address] [place] [address] [email or web address] Screening for alcoholism (Primary Dx) Social History Tobacco Use Types Packs/Day Years [...] on file Sexual Orientation Not on file documented as of this encounter Plan of Treatment Not on file documented as of this encounter Visit Diagnoses Diagnosis Screening for alcoholism- Primary documented in this encounter Care Teams Typewriter Aligner Relationship Specialty Start Date End Date Neo Webster MD [address] [place] [address] 4B_OB/[place] [address] PCP - General 06/14/14 documented as of this encounter Additional Source Comments The information contained in this document represents components of the legal health record. It is not the complete legal health record.[facility]
[2025-01-12 23:20] LABS: Hematocrit 35.9 % (37.0-47.0); Hemoglobin 11.7 g/dl (12.0-16.0); Imm Gran Abs Auto 0.02 X10*3/uL (0.00-0.03); Imm Gran Pct Auto 0.2 % (0.0-0.4); Lymphocytes Absolute Auto 2.7 X10*3/uL (1.2-4.9); MANUAL DIFF FLAG NO; Mean Corpuscular HGB Conc 32.6 g/dl (31.0-35.0); Mean Corpuscular Hemoglobin 28.7 pg (27.0-33.0); Mean Corpuscular Volume 88.2 fL (80.0-98.0); NRBC Abs Auto 0.000 X10*3/uL (0.0-0.012); NRBC Pct Auto 0.0 /100WBC (0.0-0.2); Platelet Count 337 X10*3/uL (160-400); Red Blood Count 4.07 X10*6/uL (4.20-5.50); White Blood Count 9.0 X10*3/uL (4.8-10.8)
[2025-01-12 23:28] LABS: D Dimer High Sensitivity < 150 NG/ML
[2025-01-12 23:49] LABS: Alanine Aminotransferase 17 U/L (0-31); Albumin Level 4.3 g/dL (3.5-5.0); Alkaline Phosphatase 76 U/L (39-117); Anion Gap 13 (12-20); Aspartate Amino Transferase 43 U/L (5-31); Blood Urea Nitrogen 12 mg/dL (9-16); Calcium 9.3 mg/dL (8.4-10.2); Carbon Dioxide 23 mmol/L (22-29); Chloride 107 mmol/L (96-108); Creatinine Clr Calc Pharmacy 82.3; Estimated Glomerular Filt Rate > 60; Magnesium 2.1 mg/dL (1.6-2.6); Potassium 4.4 mmol/L (3.3-5.1); Sodium 139 mmol/L (135-145); Total Protein 8.3 g/dL (6.5-8.0)
[2025-01-12 23:52] LABS: Troponin-I High Sensitivity < 2.7 ng/L (<3.5-17.0)
[2025-01-13 01:16] VITALS: BP 89/69; PULSE 56
[2025-01-13 01:20] VITALS: BP 111/79; PULSE 57
[2025-01-13 01:24] VITALS: BP 117/84; PULSE 69
[2025-01-13 01:43] LABS: Appearance Urine Clear; Glucose Urine UA Negative (Negative); PH 5.5 (5.0-9.0); Specific Gravity - Urine 1.020 (1.005-1.025); UMIC TRIGGER UACC YES
[2025-01-13 01:45] LABS: UACC Culture Trigger YES
[2025-01-13 01:55] LABS: Cannabinoid Screen Urine POSITIVE (Not Detect)
[2025-01-13 02:35] VITALS: BP 106/58; PULSE 70; RESP 16; TEMP 36.6; O2SAT 99
[2025-01-13] MEDS: Naloxone HCl Nasal TAKE HOME 4 MG SPRAY 8 MG NOSTRILALT (02:38)
[2025-01-13 02:44] VITALS: BP 106/58; PULSE 70; RESP 16; TEMP 36.6; O2SAT 99
== END 2025-01-13 02:53 | disposition home or self-care (01) ==
PROVIDERS: Emergency Provider Emergency Medicine
DX: R40.4 Transient alteration of awareness (principal); T40.601A Poisoning by unspecified narcotics, accidental (unintentional), initial encounter; R10.22 Pelvic and perineal pain left side; R00.1 Bradycardia, unspecified; R11.0 Nausea; F33.1 Major depressive disorder, recurrent, moderate; I49.8 Other specified cardiac arrhythmias; F12.90 Cannabis use, unspecified, uncomplicated; F14.90 Cocaine use, unspecified, uncomplicated; Z79.899 Other long term (current) drug therapy; Z51.81 Encounter for therapeutic drug level monitoring
CPT/HCPCS: 36415; 80048; 80076; 80307; 81001; 83735; 84484; 84702; 85025; 85379; 87086; 87088; 93005; 96360; 99285

== ENCOUNTER → 2025-01-12 22:06 | Outpatient (BNV) | payer MEDICARE, MEDICAID, SELFPAY | PROVIDERS: Emergency Provider Emergency Medicine; Visit Provider Internal Medicine | DX: R00.1 Bradycardia, unspecified (principal) | CPT/HCPCS: 93010 ==